=== PATIENT | female | born 1970 | race Caucasian/White ===

== ENCOUNTER 2023-09-18 10:23 | Day surgery (SDC) | payer BC ==
[~2023-09-18] VITALS: Ht 172.7 cm; Wt 90.7 kg
[2023-09-18] MEDS ORDERED: MIDAZOLAM HCL 5 MG/5 ML VIAL ONE ×2 (12:31→12:40)
[2023-09-18] MEDS ORDERED: fentaNYL CITRATE/PF 100 MCG/2 ML AMP ONE (12:31)
[2023-09-18 12:44] VITALS: O2SAT 96
[2023-09-18 13:40] VITALS: BP_SYST 119; PULSE 92; RESP 16
== END 2023-09-18 13:05 | disposition home or self-care (01) ==
LOC: SDS 10:23 → SMU 10:23 → SDS 13:05
PROVIDERS: ATTEND Surgery
DX: R10.84 Generalized abdominal pain (principal); K29.50 Unspecified chronic gastritis without bleeding
CPT/HCPCS: 43239; 99152; 88305; 88312; 88313; G0378; J2250; J3010